=== PATIENT | female | born 1960 | race Caucasian/White ===

== ENCOUNTER 2021-04-18 11:56 | Day surgery (SDC) | payer BC ==
[~2021-04-18] VITALS: Ht 154.9 cm; Wt 53.8 kg
[2021-04-18] VITALS (10 sets, daily range): BP systolic 128–154; BP diastolic 77–100
[~2021-04-18 11:56] MED LIST: ALPR1TAB2 PO; ESTR0.6261 PO; HYDR-3965 PO; TRAM50TA2 PO; clindamycin-Cleocin 900mg/D5W 50 ML IV ONE; famotidine 20mg tablet PO ONE; ringers solution, lacted 1,000 ML IV SCH
[2021-04-18 14:14] LABS: BASOPHILS # (AUTO) 0.1 X10'3 (0-0.2); EOSINOPHILS # (AUTO) 0.2 X10'3 (0-0.9); PRE OP HEMOGLOBIN 12.3 g/dL (12.0-16.0)
[2021-04-18 14:16] LABS: BASOPHILS % (AUTO) 1.8 % (0-1); EOSINOPHILS % (AUTO) 4.4 % (0-6); LYMPHOCYTES # (AUTO) 1.1 X10'3 (1.1-4.8); LYMPHOCYTES % (AUTO) 23.7 % (21-51); MEAN CORPUSCULAR HEMOGLOBIN 33.3 PG (27.0-31.0); MEAN CORPUSCULAR HGB CONC 35.2 g/dL (33.0-36.5); MEAN CORPUSCULAR VOLUME 94.5 FL (78-98); MEAN PLATELET VOLUME 6.5 FL (7.4-10.4); MONOCYTES # (AUTO) 0.4 X10'3 (0-0.9); MONOCYTES % (AUTO) 9.6 % (2-12); NEUTROPHILS # (AUTO) 2.7 X10'3 (1.8-7.7); NEUTROPHILS % (AUTO) 60.5 % (42-75); PRE OP PLATELET COUNT 683 X10'3 (140-440); RED CELL DISTRIBUTION WIDTH 12.3 % (11.5-14.5)
[2021-04-18 14:30] LABS: ALBUMIN 3.3 G/DL (3.4-5.0); ALBUMIN/GLOBULIN RATIO 0.8 (1.1-1.5); ALKALINE PHOSPHATASE 66 IU/L (46-116); BLOOD UREA NITROGEN 6 MG/DL (7-18); BUN/CREATININE RATIO 12.2 (6.6-38.0); CHLORIDE 101 MMOL/L (99-107); CREATININE 0.49 MG/DL (0.40-0.90); PRE OP ALT 39 U/L (30-65); PRE OP ANION GAP 10 (8-16); PRE OP AST 18 U/L (10-37); PRE OP BILIRUB, TOTAL 0.5 MG/DL (0.0-1.0); PRE OP GLUCOSE 91 MG/DL (70-104); PRE OP POTASSIUM 4.4 MMOL/L (3.4-5.1); PRE OP SODIUM 139 MMOL/L (135-145); TOTAL CARBON DIOXIDE 27.7 MMOL/L (24-32); TOTAL PROTEIN 7.4 G/DL (6.4-8.2); eGFR > 90 ML/MIN
[2021-04-18] MEDS ORDERED: BUPIVAcaine/PF 2.5mg/ml (0.25%) 10ml vial ONE (14:41)
[2021-04-18] MEDS ORDERED: MIDAZolam 1 MG/ML 5ML VIAL ONE ×2 (15:16→15:54)
[2021-04-18] MEDS ORDERED: fentaNYL/PF 50MCG/1 ML 2ML syringe ONE (15:16)
[2021-04-18] MEDS ORDERED: BUPIVAcaine 0.5% inj/PF 30 ML ONE (15:19)
[2021-04-18] MEDS ORDERED: cloNIDine hcl/PF 100mcg/ml inj ONE (15:19)
[2021-04-18] MEDS ORDERED: LIDOcaine 2% (20mg/ml) 5ml vial ONE ×2 (15:54→16:32)
[2021-04-18] MEDS ORDERED: propofol inj 20 ML IV ONE (16:32)
--- NOTE | 2021-04-18 16:41 | NUR ---
Received from OR via , accompanied by Anesthesiologist DR HADDAD and report given by Anesthesiolgist. PT PPRESENTS WITH 20G RIGH HAND, DRESSSING ON LEFT HAND DRY AND INTACT. VSS. Addendum: 04/18/21 at 1657 by Corrine Arora RN RN Amended: Links added.
[2021-04-18] MEDS ORDERED: meperidine/PF 25mg/ml syringe IV PRN ×3 (17:45)
[2021-04-18] MEDS ORDERED: morphine 2 MG/ML inj. syringe IV PRN (17:45)
[2021-04-18] MEDS ORDERED: morphine 4 MG/ML inj SYRINge IV PRN (17:45)
[2021-04-18] MEDS ORDERED: ondansetron/PF 4mg/2ml inj IV PRN (17:45)
[2021-04-18] MEDS ORDERED: proCHLORperazine 10 MG/2 ml inj IV PRN (17:45)
[2021-04-18] MEDS ORDERED: ringers solution, lacted 1,000 ML IV SCH (17:45)
--- NOTE | 2021-04-18 18:01 | NUR ---
DISCHARGE CRITERIA MET, DISCHARGE INSTRUCTIONS GIVEN, DEMONSTRATES VERBAL UNDERSTANDING. DISCHARGED HOME IN GOOD CONDITION WITH SISTER GINA Addendum: 04/18/21 at 1825 by Corrine Arora RN, RN Amended: Links added.
== END 2021-04-18 18:01 | disposition home or self-care (01) ==
LOC: PRE-OP 11:56
PROVIDERS: ATTEND Orthopaedic Surgery Hand Surgery
DX: S52.552A Other extraarticular fracture of lower end of left radius, initial encounter for closed fracture (principal); G56.02 Carpal tunnel syndrome, left upper limb; G89.18 Other acute postprocedural pain; Z79.899 Other long term (current) drug therapy; Z72.89 Other problems related to lifestyle; Z98.890 Other specified postprocedural states; Z98.51 Tubal ligation status; Z88.0 Allergy status to penicillin; W19.XXXA Unspecified fall, initial encounter; Y93.89 Activity, other specified; Y92.89 Other specified places as the place of occurrence of the external cause; Y99.8 Other external cause status
CPT/HCPCS: 25607; 64417; 64721; 76942; 80053; 85025; 93005; C1713; J0735; J2001; J2250; J2704; J3010; J3490; J7120; Z7506; Z7508; Z7512; A4215; A4618; A6449; A7000

== ENCOUNTER 2021-09-05 05:18 | Day surgery (SDC) | payer BC ==
[2021-09-01 15:32] LABS: BASOPHILS # (AUTO) 0.1 X10'3 (0-0.2); BASOPHILS % (AUTO) 1.2 % (0-1); EOSINOPHILS # (AUTO) 0.3 X10'3 (0-0.9); EOSINOPHILS % (AUTO) 7.3 % (0-6); LYMPHOCYTES # (AUTO) 1.1 X10'3 (1.1-4.8); LYMPHOCYTES % (AUTO) 24.8 % (21-51); MEAN CORPUSCULAR HEMOGLOBIN 33.3 PG (27.0-31.0); MEAN CORPUSCULAR HGB CONC 34.2 g/dL (33.0-36.5); MEAN CORPUSCULAR VOLUME 97.1 FL (78-98); MEAN PLATELET VOLUME 7.1 FL (7.4-10.4); MONOCYTES # (AUTO) 0.5 X10'3 (0-0.9); MONOCYTES % (AUTO) 11.3 % (2-12); NEUTROPHILS # (AUTO) 2.5 X10'3 (1.8-7.7); NEUTROPHILS % (AUTO) 55.4 % (42-75); PRE OP HEMATOCRIT 39.2 % (35.0-45.0); PRE OP HEMOGLOBIN 13.4 g/dL (12.0-16.0); PRE OP PLATELET COUNT 306 X10'3 (140-440); RED BLOOD COUNT 4.04 X10'6 (4.20-5.60); RED CELL DISTRIBUTION WIDTH 12.5 % (11.5-14.5)
[2021-09-01 15:45] LABS: ALBUMIN/GLOBULIN RATIO 1.4 (1.1-1.5); ALKALINE PHOSPHATASE 59 IU/L (46-116); BLOOD UREA NITROGEN 13 MG/DL (7-18); BUN/CREATININE RATIO 17.1 (6.6-38.0); CALCIUM 8.8 MG/DL (8.5-10.1); CHLORIDE 102 MMOL/L (99-107); CREATININE 0.76 MG/DL (0.40-0.90); PRE OP ALT 25 U/L (30-65); PRE OP ANION GAP 10 (8-16); PRE OP AST 20 U/L (10-37); PRE OP BILIRUB, TOTAL 0.2 MG/DL (0.0-1.0); PRE OP GLUCOSE 97 MG/DL (70-104); PRE OP POTASSIUM 4.3 MMOL/L (3.4-5.1); PRE OP SODIUM 139 MMOL/L (135-145); TOTAL CARBON DIOXIDE 26.8 MMOL/L (24-32); TOTAL PROTEIN 6.9 G/DL (6.4-8.2); eGFR 78 ML/MIN
[2021-09-05] VITALS (11 sets, daily range): BP systolic 132–147; BP diastolic 58–92
[~2021-09-05] VITALS: Ht 154.9 cm; Wt 55.8 kg
[~2021-09-05 05:18] MED LIST changes: +GABA-534 PO; +MULTI VITAMINS PO; -clindamycin-Cleocin 900mg/D5W 50 ML IV ONE; -famotidine 20mg tablet PO ONE
[2021-09-05] MEDS ORDERED: clindamycin-Cleocin 900mg/D5W 50 ML IV ONE (05:30)
[2021-09-05] MEDS ORDERED: famotidine 20mg tablet PO ONE (05:30)
[2021-09-05] MEDS ORDERED: BUPIVAcaine 0.5% inj/PF 30 ML ONE (06:55)
[2021-09-05] MEDS ORDERED: BUPIVAcaine 0.5% inj/PF 30 ml vial IJ ONE (07:07)
[2021-09-05] MEDS ORDERED: FENTANYL CITRATE/PF 50 MCG/1 ML VIAL ONE (07:27)
[2021-09-05] MEDS ORDERED: midazolam 1 mg/ML 2ml injection ONE (07:27)
[2021-09-05] MEDS ORDERED: propofol inj 20 ML IV ONE (07:27)
[2021-09-05] MEDS ORDERED: cloNIDine hcl/PF 100mcg/ml inj ONE (07:33)
[2021-09-05] MEDS ORDERED: ROPIVAcaine 0.5% (5mg/ml) 30ml vial ONE (07:33)
[2021-09-05] MEDS ORDERED: morphine 4 MG/ML inj SYRINge IV PRN (09:00)
[2021-09-05] MEDS ORDERED: ringers solution, lacted 1,000 ML IV SCH (09:00)
[2021-09-05] MEDS ORDERED: ondansetron/PF 4mg/2ml inj IV PRN (09:00)
[2021-09-05] MEDS ORDERED: meperidine/PF 25mg/ml syringe IV PRN ×3 (09:00)
[2021-09-05] MEDS ORDERED: ROPIVAcaine 0.2%/PF PUMP/bolus 545 ML INTERSCALE SCH (09:00)
[2021-09-05] MEDS ORDERED: proCHLORperazine 10 MG/2 ml inj IV PRN (09:00)
--- NOTE | 2021-09-05 09:11 | NUR ---
Received from OR via [facility], accompanied by Anesthesiologist DR BARRIENTOS and report given by Anesthesiologist AND SALES ACCOUNT ASSOCIATE. PT BILL W/EMERALD FUENTES COVERING HAND/WRIST CDI. 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 Addendum: 09/05/21 at 0927 by Lesia More RN Amended: Links added.
[2021-09-05] MEDS: morphine 2 MG/ML inj. syringe IV PRN ×2 (09:23→09:36)
[2021-09-05] MEDS ORDERED: acetaminophen 1,000mg/100ml IV 100 ML IV ONE (09:45)
[2021-09-05] MEDS ORDERED: ketorolac trometh. 30mg/ml inj. IV ONE (09:45)
[2021-09-05] MEDS ORDERED: ROPIVAcaine 0.2% (10 MG/5 ML) BOLUS INJECTION INTERSCALE PRN (10:05)
--- NOTE | 2021-09-05 10:51 | NUR ---
PAIN IMPROVING, D/C INSTRUCTIONS INCLUDING ON-QUE GIVEN AND GONE OVER W/PT WHO VERBALIZED UNDERSTANDING. PT UP AND ABLE TO AMBULATE SAFELY. PT D/CD TO HOME VIA W/C TO PRIVATE VEHICLE W/O INCIDENT. Addendum: 09/05/21 at 1100 by Lesia More RN Amended: Links added.
== END 2021-09-05 10:51 | disposition home or self-care (01) ==
LOC: PAS 05:18
PROVIDERS: ATTEND Orthopaedic Surgery Hand Surgery
DX: T84.84XA Pain due to internal orthopedic prosthetic devices, implants and grafts, initial encounter (principal); M25.632 Stiffness of left wrist, not elsewhere classified; F41.9 Anxiety disorder, unspecified; G89.18 Other acute postprocedural pain; G90.50 Complex regional pain syndrome I, unspecified; Z20.822 Contact with and (suspected) exposure to COVID-19; Z79.899 Other long term (current) drug therapy; Z88.0 Allergy status to penicillin; Z72.89 Other problems related to lifestyle; Z98.890 Other specified postprocedural states; Z98.51 Tubal ligation status; Z90.710 Acquired absence of both cervix and uterus; Y83.8 Other surgical procedures as the cause of abnormal reaction of the patient, or of later complication, without mention of misadventure at the time of the procedure; Y92.89 Other specified places as the place of occurrence of the external cause
CPT/HCPCS: 20680; 29846; 36415; 64416; 76942; 80053; 82948; 85025; 87635; C9803; J0131; J0735; J1885; J2250; J2270; J2704; J2795; J3010; J7030; J7120; S0020; Z7506; Z7508; Z7512; A4215; A4618; A6449; A7000

== ENCOUNTER 2023-09-22 08:55 | Inpatient (IN) | payer BC ==
[~2023-09-22] VITALS: Ht 154.9 cm; Wt 54.2 kg
[~2023-09-22 08:55] MED LIST changes: -GABA-534 PO; +GABA-535 PO; -ringers solution, lacted 1,000 ML IV SCH
[2023-09-22] MEDS ORDERED: GABA-535 PO (09:37)
[2023-09-22 09:43] LABS: BASOPHILS % (AUTO) 0.7 % (0-1); EOSINOPHILS # (AUTO) 0.1 X10'3 (0-0.9); EOSINOPHILS % (AUTO) 1.6 % (0-6); HEMATOCRIT 38.2 % (35.0-45.0); LYMPHOCYTES # (AUTO) 0.9 X10'3 (1.1-4.8); LYMPHOCYTES % (AUTO) 17.7 % (21-51); MEAN CORPUSCULAR HEMOGLOBIN 33.8 PG (27.0-31.0); MEAN CORPUSCULAR HGB CONC 36.6 g/dL (33.0-36.5); MEAN CORPUSCULAR VOLUME 92.4 FL (78-98); MEAN PLATELET VOLUME 6.9 FL (7.4-10.4); MONOCYTES # (AUTO) 0.5 X10'3 (0-0.9); MONOCYTES % (AUTO) 9.9 % (2-12); NEUTROPHILS # (AUTO) 3.4 X10'3 (1.8-7.7); NEUTROPHILS % (AUTO) 70.1 % (42-75); PLATELET COUNT 393 X10'3 (140-440); RED BLOOD COUNT 4.14 X10'6 (4.20-5.60); RED CELL DISTRIBUTION WIDTH 11.7 % (11.5-14.5); WHITE BLOOD COUNT 4.9 X10'3 (4.5-11.0)
[2023-09-22 10:33] LABS: ALANINE AMINOTRANSFERASE 35 U/L (12-78); ALBUMIN 4.7 G/DL (3.4-5.0); ALBUMIN/GLOBULIN RATIO 1.7 (1.1-1.5); ALKALINE PHOSPHATASE 36 IU/L (46-116); ANION GAP 12 (8-16); ASPARTATE AMINO TRANSFERASE 28 U/L (10-37); BLOOD UREA NITROGEN 6 MG/DL (7-18); BUN/CREATININE RATIO 9.4 (10.0-20.0); CALCIUM 8.4 MG/DL (8.5-10.1); CHLORIDE 77 MMOL/L (99-107); CREATININE 0.64 MG/DL (0.40-0.90); GLUCOSE 104 MG/DL (70-104); MAGNESIUM 1.9 MG/DL (1.5-2.4); PHOSPHORUS 2.9 MG/DL (2.3-4.5); TOTAL CARBON DIOXIDE 28.5 MMOL/L (24-32); TOTAL PROTEIN 7.5 G/DL (6.4-8.2); eCRCL 69 ML/MIN; eGFR > 90 ML/MIN
[2023-09-22 10:37] LABS: POTASSIUM 2.8 MMOL/L (3.5-5.1); SODIUM 117 MMOL/L (135-145)
[2023-09-22] MEDS ORDERED: ALPRAZolam 0.5mg tablet PO SCH (11:10)
[2023-09-22] MEDS ORDERED: traMADol 50MG tablet PO PRN (11:10)
[2023-09-22] MEDS ORDERED: acetaminophen 650mg rectal suppository RC PRN (11:15)
[2023-09-22] MEDS ORDERED: ondansetron 4mg rapidly disintigrating tab PO PRN (11:15)
[2023-09-22] MEDS ORDERED: bisacodyl 10mg suppository rectal RC PRN (11:15)
[2023-09-22] MEDS ORDERED: diphenhydrAMINE 50 mg/ml inj IV PRN (11:15)
[2023-09-22] MEDS ORDERED: acetaminophen 325mg tablet PO PRN (11:15)
[2023-09-22] MEDS ORDERED: magnesium hydroxide 30ml (MOM) UD suspension PO PRN (11:15)
[2023-09-22] MEDS ORDERED: mag hydrox/Alum hydrox/simeth 30ml oral suspension PO PRN (11:15)
[2023-09-22] MEDS ORDERED: potassium Cl 40MEQ/1/2NS 520ml 520 ML IV PRN (11:15)
[2023-09-22] MEDS ORDERED: diphenhydrAMINE 25mg capsule PO PRN (11:15)
[2023-09-22] MEDS ORDERED: potassium Cl 20 mEq SR tablet PO PRN (11:15)
[2023-09-22] MEDS: potassium Cl 20 mEq SR tablet PO STA (11:37)
[2023-09-22] MEDS: potassium CL 10mEq/100ml bag 100 ML IV SCH (11:40)
[2023-09-22] MEDS: potassium Cl 20mEq in NS 1,000 ML IV SCH (12:29)
[2023-09-22 12:58] LABS: CREATINE KINASE 96 U/L (26-192); ETHANOL < 10 MG/DL (<10); LIPASE 36 U/L (16-77); THYROID STIMULATING HORMONE 0.67 ulU/ml (0.34-4.50)
[2023-09-22 13:28] VITALS: BP 125/79; PULSE 69; RESP 18; TEMP 98.2; O2SAT 98
[2023-09-22 13:33] LABS: POTASSIUM 2.8 MMOL/L (3.5-5.1)
[2023-09-22] MEDS: ringers solution, lacted 1,000 ML IV ONE (13:40)
[2023-09-22 14:58] LABS: BILIRUBIN,URINE NEGATIVE (Neg); CLARITY,URINE CLEAR (Clear); COLOR,URINE YELLOW (Yellow); GLUCOSE, URINE NEGATIVE (Neg); KETONES,URINE >=80 mg/dl (Neg); LEUKOCYTE ESTERASE ,URINE NEGATIVE (Neg); NITRITES, URINE NEGATIVE (Neg); OCCULT BLOOD,URINE NEGATIVE (Neg); PROTEIN,URINE NEGATIVE (Neg); UROBILINOGEN,URINE 0.2 E.U/dL (0.2-1.0)
[2023-09-22 15:02] LABS: UA COLLECTION TYPE NON-SPECIFIED
[2023-09-22 15:08] LABS: URINE AMPHETAMINE SCREEN NEGATIVE (Neg); URINE BARBITUATE SCREEN NEGATIVE (Neg); URINE BENZODIAZEPINES SCREEN POSITIVE (Neg); URINE CANNABINOID SCREEN NEGATIVE (Neg); URINE COCAINE SCREEN NEGATIVE (Neg); URINE METHADONE SCREEN NEGATIVE (Neg); URINE OPIATE SCREEN NEGATIVE (Neg); URINE PHENCYCLIDINE SCREEN NEGATIVE (Neg)
[2023-09-22] MEDS: ondansetron/PF 4mg/2ml inj IV PRN (15:27)
[2023-09-22 16:03] VITALS: BP 155/79; PULSE 68; RESP 15; TEMP 98.3; O2SAT 98
[2023-09-22] MEDS: acetaminophen 325mg tablet PO PRN (16:51)
[2023-09-22 18:00] VITALS: BP 132/71; PULSE 69; RESP 18; TEMP 97.8; O2SAT 96
[2023-09-22] MEDS: gabapentin 400mg capsule PO SCH (19:56)
[2023-09-22] MEDS: heparin, porcine 5000 units/ml vial SQ SCH (19:57)
[2023-09-22 20:00] VITALS: RESP 18; O2SAT 97
[2023-09-22] MEDS: K and/or MAG REPLACEMENT MC SCH (20:00)
[2023-09-22] MEDS: docusate sod 100mg capsule PO SCH (20:00)
[2023-09-22] MEDS: estrogen, conjugated 0.625mg tablet PO SCH (21:00)
[2023-09-22 22:00] VITALS: BP 125/73; PULSE 71; RESP 14; TEMP 97.2; O2SAT 96
[2023-09-22 22:17] LABS: POTASSIUM 3.8 MMOL/L (3.5-5.1)
[2023-09-22] MEDS: temazepam 15mg capsule PO PRN (23:30)
[2023-09-23] VITALS (7 sets, daily range): BP systolic 128–166; BP diastolic 62–83; PULSE 73–81; RESP 14–26; TEMP 97.3–98.2; O2SAT 95–100
[2023-09-23 04:15] LABS: EOSINOPHILS # (AUTO) 0.1 X10'3 (0-0.9); HEMATOCRIT 34.3 % (35.0-45.0); HEMOGLOBIN 12.3 g/dl (12.0-16.0); LYMPHOCYTES # (AUTO) 1.2 X10'3 (1.1-4.8); LYMPHOCYTES % (AUTO) 32.3 % (21-51); MEAN CORPUSCULAR HEMOGLOBIN 33.8 PG (27.0-31.0); MEAN CORPUSCULAR HGB CONC 35.7 g/dL (33.0-36.5); MEAN CORPUSCULAR VOLUME 94.5 FL (78-98); MEAN PLATELET VOLUME 7.2 FL (7.4-10.4); MONOCYTES # (AUTO) 0.5 X10'3 (0-0.9); MONOCYTES % (AUTO) 14.3 % (2-12); NEUTROPHILS # (AUTO) 1.9 X10'3 (1.8-7.7); NEUTROPHILS % (AUTO) 50.4 % (42-75); PLATELET COUNT 365 X10'3 (140-440); RED BLOOD COUNT 3.63 X10'6 (4.20-5.60); RED CELL DISTRIBUTION WIDTH 11.9 % (11.5-14.5); WHITE BLOOD COUNT 3.7 X10'3 (4.5-11.0)
[2023-09-23 04:52] LABS: ALANINE AMINOTRANSFERASE 24 U/L (12-78); ALBUMIN 3.6 G/DL (3.4-5.0); ALBUMIN/GLOBULIN RATIO 1.5 (1.1-1.5); ALKALINE PHOSPHATASE 28 IU/L (46-116); ANION GAP 7 (8-16); ASPARTATE AMINO TRANSFERASE 17 U/L (10-37); BILIRUBIN,TOTAL 0.5 MG/DL (0.1-1.0); BLOOD UREA NITROGEN 5 MG/DL (7-18); BUN/CREATININE RATIO 8.2 (10.0-20.0); CHLORIDE 97 MMOL/L (99-107); CHOL/HDL RATIO 2.6 (0.00-4.99); CHOLESTEROL 193 MG/DL (0-200); CREATININE 0.61 MG/DL (0.40-0.90); GLUCOSE 93 MG/DL (70-104); HDL CHOLESTEROL 75 MG/DL (35-60); LDL CHOLESTEROL 95 MG/DL (50-100); MAGNESIUM 2.3 MG/DL (1.5-2.4); POTASSIUM 3.3 MMOL/L (3.5-5.1); SODIUM 131 MMOL/L (135-145); TOTAL CARBON DIOXIDE 26.9 MMOL/L (24-32); TRIGLYCERIDES 59 MG/DL (20-135); eCRCL 72 ML/MIN; eGFR > 90 ML/MIN
[2023-09-23] MEDS: potassium Cl 20 mEq SR tablet PO PRN (04:58)
[2023-09-23] MEDS: pantoprazole 40mg Tablet.DR PO SCH (08:03)
[2023-09-23 19:37] LABS: ALBUMIN 3.7 G/DL (3.4-5.0); ANION GAP 7 (8-16); BLOOD UREA NITROGEN 4 MG/DL (7-18); BUN/CREATININE RATIO 8.3 (10.0-20.0); CALCIUM 8.1 MG/DL (8.5-10.1); CHLORIDE 101 MMOL/L (99-107); CREATININE 0.48 MG/DL (0.40-0.90); GLUCOSE 97 MG/DL (70-104); POTASSIUM 4.2 MMOL/L (3.5-5.1); SODIUM 134 MMOL/L (135-145); TOTAL CARBON DIOXIDE 25.6 MMOL/L (24-32); eCRCL 92 ML/MIN; eGFR > 90 ML/MIN
[2023-09-24 02:00] VITALS: BP 112/52; PULSE 74; RESP 20; TEMP 97; O2SAT 97
[2023-09-24 07:29] LABS: WHITE BLOOD COUNT 3.7 X10'3 (4.5-11.0)
[2023-09-24 07:32] LABS: HEMOGLOBIN 11.7 g/dl (12.0-16.0); MEAN CORPUSCULAR HEMOGLOBIN 33.9 PG (27.0-31.0); MEAN CORPUSCULAR HGB CONC 35.5 g/dL (33.0-36.5); MEAN CORPUSCULAR VOLUME 95.5 FL (78-98); PLATELET COUNT 322 X10'3 (140-440); RED BLOOD COUNT 3.45 X10'6 (4.20-5.60); RED CELL DISTRIBUTION WIDTH 12.1 % (11.5-14.5)
[2023-09-24 07:57] LABS: ALANINE AMINOTRANSFERASE 32 U/L (12-78); ALBUMIN 3.2 G/DL (3.4-5.0); ALBUMIN/GLOBULIN RATIO 1.3 (1.1-1.5); ALKALINE PHOSPHATASE 31 IU/L (46-116); ANION GAP 9 (8-16); ASPARTATE AMINO TRANSFERASE 19 U/L (10-37); BILIRUBIN,TOTAL 0.3 MG/DL (0.1-1.0); BLOOD UREA NITROGEN 3 MG/DL (7-18); BUN/CREATININE RATIO 6.1 (10.0-20.0); CALCIUM 7.8 MG/DL (8.5-10.1); CHLORIDE 102 MMOL/L (99-107); CREATININE 0.49 MG/DL (0.40-0.90); GLUCOSE 95 MG/DL (70-104); MAGNESIUM 1.7 MG/DL (1.5-2.4); POTASSIUM 4.3 MMOL/L (3.5-5.1); SODIUM 135 MMOL/L (135-145); TOTAL CARBON DIOXIDE 23.9 MMOL/L (24-32); TOTAL PROTEIN 5.7 G/DL (6.4-8.2); eCRCL 90 ML/MIN; eGFR > 90 ML/MIN
[2023-09-24 08:00] VITALS: RESP 16; O2SAT 100
[2023-09-24 08:49] LABS: TOTAL CELLS COUNTED 100
[2023-09-24 08:50] LABS: PLATELET ESTIMATE NORMAL
[2023-09-24 08:52] LABS: ROULEAUX 1+
== END 2023-09-24 12:38 | disposition home or self-care (01) | DRG 641 ==
LOC: ER 08:56 → ED HOLD 11:16 → PCU 3S 12:45
PROVIDERS: ADMIT Family Medicine; ATTEND Family Medicine
DX: E87.1 Hypo-osmolality and hyponatremia (principal); E78.5 Hyperlipidemia, unspecified; E87.6 Hypokalemia; F41.9 Anxiety disorder, unspecified; G89.4 Chronic pain syndrome; I10 Essential (primary) hypertension; R26.9 Unspecified abnormalities of gait and mobility; Z88.0 Allergy status to penicillin; Z91.018 Allergy to other foods; Z91.048 Other nonmedicinal substance allergy status; Z88.5 Allergy status to narcotic agent; Z79.891 Long term (current) use of opiate analgesic
CPT/HCPCS: 36415; 71250; 74176; 80048; 80053; 80061; 80305; 80320; 81003; 82550; 83036; 83690; 83735; 83880; 84100; 84132; 84295; 84443; 84484; 85007; 85025; 87081; 93005; 93306; 99285; G0378; J1644; J2405; J3480; J7030; J7120